=== PATIENT | female | born 1995 | race Caucasian/White ===

== ENCOUNTER 2024-09-20 20:46 | Emergency (ER) | payer BC, OTHER ==
--- OUTSIDE RECORDS SUMMARY | 2024-09-20 20:48 | XMS REPORT | Continuity of Care Document ---
Author Name Unknown Address [address] [facility] [address] [place] [address] [facility] thconnect Address [address] [facility] [address] [place] [address] Care Team Providers Care Criminal Justice Lawyer Name Role Phone Pcp, Patient Does Not Have A Primary Care Physic sd [email or web address] Attending Clinician Rafael mann Doctor Unassigned, [place] Attending Clinician U navailable Lab, Adc Fam Pob I Attending Clinician Garret Antoine Attending Clinician [phone] GARRET ALEMAN Attending Clinician Unavailable Perry RN, Clari Dumont Attending Clinician Lala orr Pob1, Acute Care Clinic Attending Clinician Unamerissa ailnasrin Unknown, Attending Attending Clinician Yumiko Campos Attending Clinician [phone] [email or web address] Admitting Clinician Rafael mann Payers Payer Name Policy Type Policy Number Effective Date Expirati on Date Source Problems Condition Name Condition Details Condition Category Status Onset Date Resolution Date Last Treatment Date Treating Clinician Comments Source Right leg pain Right leg pain Disease Active 04-15 00:00: 00 [facility] Allergies, Adverse Reactions, Alerts Allergy Name Allergy Type Status Severity Reaction(s) Onset Date Inactive Date Treating Clinician Comments Source Doxycycl ine Monohydr ate Propensi ty to adverse reaction s Active Hives 04-15 00:00: 00 Namrata [facility] DOXYCYCL INE MONOHYDR ATE DRUG INGREDI Active Hives 04-15 00:00: 00 [facility] Social History Social Habit Start Date Stop Date Quantity Comments Source [facility] of Social function 2020-06-29 00:00:00 2020-06-29 00:00:00 [facility] Alcohol intake 2020-03-04 00:00:00 2020-03-04 00:00:00 0 /d [facility] Tobacco use and exposure 2020-03-04 00:00:00 2020-03-04 00:00:00 Smokeless tobacco non-user [facility] Sex Assigned At 1995 00:00:00 1995 00:00:00 [facility] Smoking Status Start Date Stop Date Source Never smoked tobacco [facility] Medications Ordered Medication Name Filled Medication Name Start Date Stop Date Current Medication? Ordering Clinician Indication Dosage Frequency Signature (SIG) Comments Components Source SERTraline 25 mg tablet 01-27 00:00: 00 Yes TAKE ONE (1) TABLET(S) BY MOUTH ONCE A DAY. [facility] diclofenac (VOLTAREN) 75 mg EC tablet 04-18 00:00: 00 Yes 75mg Take 1 tablet by mouth 2 (two) times daily with meals. [facility] VIORELE, 28, 0.15-0.02 mgx21 /0.01 mg x 5 per tablet 02-21 00:00: 00 Yes [facility] Vital Signs Vital Name Observation Time Observation Value Comments S ource Systolic blood pressure 2020-03-04 13:59:00 124 mm[Hg] [facility] Diastolic blood pressure 2020-03-04 13:59:00 81 mm[Hg] [facility] Heart rate 2020-03-04 13:59:00 82 /min [facility] Body temperature 2020-03-04 13:59:00 36.78 Huong [facility] Respiratory rate 2020-03-04 13:59:00 18 /min [facility] Body height 2020-03-04 13:59:00 175.3 cm [facility] Body weight 2020-03-04 13:59:00 90.719 kg [facility] BMI 2020-03-04 13:59:00 29.53 kg/m2 [facility] Oxygen saturation in Arterial blood by Pulse oximetry 2020-03-04 13:59:00 99 /min [facility] Procedures Procedure Date / Time Performed Performing Clinicia n Source CONSENT/REFUSAL FOR DIAGNOSIS AND TREATMENT 2020-03-04 05:01:00 Doctor Unassigned, [place] [facility] Encounters Start Date/Time End Date/Time Encounter Type Admission Type [facility]ending [facility] Care Facility Care Department Encounter ID Source 2023-09-21 00:00:00 2023-09-21 00:00:00 Outpatient [email or web address] [email or web address] [facility] [id number] [facility] 2020-06-08 00:00:00 2020-06-08 00:00:00 Patient Secure Msg Doctor Unassigned, [place] [facility] 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 [id number] [facility] 2020-06-06 13:53:59 2020-06-06 14:13:59 Laboratory Only Lab, [facility] [id number] [facility] 2020-06-06 14:00:00 2020-06-06 14:00:00 Outpatient GARRET WYLIE [facility] [id number] [facility] 2020-03-05 00:00:00 2020-03-05 00:00:00 Telephone Clari Amador [facility] .[id number] [id number] [facility] 2020-03-04 08:40:40 2020-03-04 09:09:07 Urgent Care Pob1, Acute Care Clinic Unknown, Attending Yumiko Crespo [facility] [address] [id number] [facility] 2020-03-04 09:00:00 2020-03-04 09:00:00 Outpatient R [facility] [id number] [facility] 2020-03-04 00:00:00 2020-03-04 00:00:00 Orders Only Doctor Unassigned, [place] [facility] [id number] [facility]
[2024-09-20] MEDS ORDERED: METOCLOPRAMIDE 10 MG/2mL INJ ONE (21:41)
[2024-09-20] MEDS ORDERED: DIPHENHYDRAMINE 50 MG/ML VIAL ONE (21:41)
[2024-09-20] MEDS ORDERED: NA CHLORIDE 0.9% 500 ML ONE (21:42)
[2024-09-20 21:45] LABS: Absolute Basophils 0.1 K/uL (0-0.5); Absolute Eosinophils 0.1 K/uL (0-0.5); Absolute Lymphocytes (CBC) 3.3 K/uL (0.7-4.9); Absolute Monocytes 1.4 K/uL (0.1-1.3); Absolute Neutrophil 6.8 K/uL (1.8-8.0); Basophils % 0.7 % (0-1.3); Eosinophils % 0.6 % (0-4.4); Hematocrit 35.5 % (36.0-45.0); Hemoglobin 11.7 g/dL (12.0-15.0); Lymphocytes % 28.1 % (15.3-44.8); MCH 27.2 pg (27.0-35.0); MCHC 32.8 g/dL (32.0-36.0); MCV 82.8 fL (80-100); MPV 7.7 fL (7.6-11.3); Monocytes % 11.7 % (3.3-12.3); Neutrophils % 58.9 % (41.7-73.7); Platelets 294 thou/uL (152-406); RBC Red Blood Cell Count 4.29 M/uL (3.86-4.86); Red Cell Distribution Width 13.6 % (12.1-15.2)
[2024-09-20 21:49] LABS: Sqamous Epithelial <5 /HPF (None Seen); Urine Bacteria None Seen /HPF (<20); Urine Bilirubin NEGATIVE (Negative); Urine Blood 1+ (Negative); Urine Clarity Clear (Clear); Urine Color Yellow (Yellow); Urine Culture Reflex Order NOT NEEDED; Urine Glucose NEGATIVE (Negative); Urine Ketones 3+ (Negative); Urine Microscopic Reflex YN ORDER UMIC; Urine Mucus Slight /HPF (None Seen); Urine Nitrite NEGATIVE (Negative); Urine Protein TRACE (Negative); Urine Urobilinogen 2+ (Normal); Urine WBC <5 /HPF (<5); Urine pH 6.5 (5.0-7.0)
[2024-09-20 21:59] LABS: Albumin 3.2 g/dL (3.4-5.0); Albumin/Globulin Ratio 0.9 (1.1-1.8); Bilirubin Total 1.3 mg/dL (0.2-1.0); Globulin 3.6 g/dL (2.3-3.5); Protein, Total 6.8 g/dL (6.4-8.2)
--- NOTE | 2024-09-20 22:26 | RAD REPORT ---
EXAM: Right upper quadrant ultrasound. CLINICAL HISTORY: Abdominal pain COMPARISON: 2011 FINDINGS: A gallstone is not seen. Gallbladder wall not thickened. Biliary tree normal caliber IMPRESSION: No significant abnormalities displayed
--- NOTE | 2024-09-20 23:01 | ER ---
Nurse's Notes [facility] Name: Ana Edouard Age: 29 yrs Sex: Female : 1995 Arrival Date: 09/20/2024 Time: 20:46 Bed 25 Private MD: Diagnosis: Abdominal pain, unspecified;Nausea with vomiting, unspecified;Hypokalemia;Dehydration Presentation: 09/20 21:10 Chief complaint: Patient states: C/o epi gastric pain since Friday. Pain is severe. cg Diarrhea x 1 day only. Vomiting for 3 days. Coronavirus screen: Vaccine status: Patient reports receiving the 2nd dose of the covid vaccine. Ebola Screen: Patient negative for fever greater than or equal to 101.5 degrees Fahrenheit, and additional compatible Ebola Virus Disease symptoms. Initial Sepsis Screen: Does the patient meet any 2 criteria? No. Patient's initial sepsis screen is negative. Risk Assessment: Do you want to hurt yourself or someone else? Patient reports no desire to harm self or others. Onset of symptoms was September 17, 2024. 21:10 Method Of Arrival: Ambulatory cg 21:10 Acuity: ROBB 3 cg Triage Assessment: 21:54 General: Appears uncomfortable, well developed, Behavior is calm, Reports. Pain: cg Complains of pain in abdomen Pain currently is 4 out of 10 on a pain scale. Quality of pain is described as burning, pressure. Historical: - Allergies: 21:14 Doxycycline; cg - Home Meds: 21:14 Zoloft 150mg Oral daily for anxiety with depression [Active]; metformin 1,000 mg Oral cg tablet daily [Active]; - Immunization history:: Adult Immunizations up to date. - Infectious Disease History:: Denies. - Social history:: Smoking status: Patient denies any tobacco usage or history of. Screenin:51 [facility] ED Fall Risk Assessment (Adult) History of falling in the last 3 months, fu including since admission No falls in past 3 months (0 pts) Confusion or Disorientation No (0 pts) Intoxicated or Sedated No (0 pts) Impaired Gait No (0 pts) Mobility Assist Device Used No (0 pt) Altered Elimination No (0 pt) Score/Fall Risk Level 0 - 2 = Low Risk Oriented to surroundings, Maintained a safe environment. Abuse screen: Denies threats or abuse. Nutritional screening: No deficits noted. Tuberculosis screening: No symptoms or risk factors identified. Assessment: 22:00 General: Appears uncomfortable, Behavior is calm, cooperative. Pain: Complains of pain fu in abdomen Pain does not radiate. Pain currently is 4 out of 10 on a pain scale. Quality of pain is described as crampy. Neuro: Level of Consciousness is awake, alert, obeys commands, Oriented to person, place, time, situation, Speech is normal. GI: Bowel sounds present X 4 quads. Abd is soft. Derm: Skin is intact. 22:58 Reassessment: Patient and/or family updated on plan of care and expected duration. Pain fu level reassessed. Patient is alert, oriented x 3, equal unlabored respirations, skin warm/dry/pink. Dr. Brush in patient room, talking to patient. Vital Signs: 21:10 BP 131 / 73; Pulse 69; Resp 20; Temp 98; Weight 97.52 kg; Height 5 ft. 9 in. ; Pain cg 4/10; 21:56 BP 125 / 90; Pulse 80; Resp 16; Temp 98.5; cg 22:30 BP 106 / 63; Pulse 68; Resp 16; Pain 4/10; fu 23:00 BP 107 / 72; Pulse 80; Resp 16; fu 21:10 Body Mass Index 31.75 (97.52 kg, 175.26 cm) cg 21:10 Pain Scale: Adult cg 22:30 Pain Scale: Adult fu ED Course: 20:49 Patient arrived in ED. ra3 21:08 Ramiro Brush MD is Attending Physician. ec2 21:14 Triage completed. cg 21:29 CBC with Diff Sent. cg 21:29 CMP Sent. cg 21:29 Lipase Sent. cg 21:29 Inserted saline lock: 22 gauge in right antecubital area, using aseptic technique. fu Blood collected. 21:34 Test, Urine Sent. cg 21:34 Urinalysis w/ reflexes Sent. cg 22:10 US Abdomen Limited In Process Unspecified. EDMS 22:47 Wily Treviño, RN is Primary Nurse. fu 22:51 Patient has correct armband on for positive identification. Bed in low position. Side fu rails up X2. personal lines sales rep on. Pulse ox on. NIBP on. 23:22 No provider procedures requiring assistance completed. fu 23:22 IV discontinued, bleeding controlled, Pressure dressing applied. fu Administered Medications: 21:31 CANCELLED (Physician Discretion): ondansetron 4 mg IVP once; over 2 minutes ec2 21:52 Drug: NS 0.9% IV 500 ml IV at bolus once; to be given as a bolus over 30 minutes Route: cg IV; Rate: bolus; Site: right antecubital; 22:59 Follow up: Response: No adverse reaction; IV Intake: 500ml fu 21:52 Drug: metoCLOPramide IVP 10 mg IVP once; over 1 to 2 minutes Route: IVP; Site: right cg antecubital; 22:59 Follow up: Response: No adverse reaction fu 21:52 Drug: diphenhydrAMINE IVP 50 mg IVP once Route: IVP; Site: right antecubital; cg 22:59 Follow up: Response: No adverse reaction fu Medication: 22:59 VIS not applicable for this client. fu Intake: 22:59 IV: 500ml; Total: 500ml. fu Outcome: 23:01 Discharge ordered by . ec2 23:23 Discharged to home ambulatory, fu 23:23 Condition: good 23:23 Discharge instructions given to patient, family, Instructed on discharge instructions, follow up and referral plans. Demonstrated understanding of instructions, follow-up care, medications, Prescriptions given X 1, 23:23 Patient left the ED. fu Signatures: Dispatcher [employer] Malena Escudero, RN TWIN Wily Treviño RN RN Ramiro Brush MD MD ec2 Angelica Sanchez ra3
--- NOTE | 2024-09-20 23:01 | EDPHYS ---
Physician Documentation [facility] Name: Ana Edouard Age: 29 yrs Sex: Female : 1995 Arrival Date: 09/20/2024 Time: 20:46 Bed 25 Private MD: ED Physician Ramiro Brush HPI: 09/20 21:32 This 29 yrs old Female presents to ER via Ambulatory with complaints of ec2 Abdominal Pain, Vomiting. 21:32 Patient arrives today for evaluation of abdominal pain. Reports she been having ec2 abdominal pain ongoing for 2 days. Reports associated nausea and vomiting. Patient reports that she has been to the ED 3 times in the past [address] imaging, negative urine studies. Reports otherwise no previous abdominal surgeries. Reports history of IBS. Has taken Zofran as well as droperidol.. Historical: - Allergies: 21:14 Doxycycline; cg - Home Meds: 21:14 Zoloft 150mg Oral daily for anxiety with depression [Active]; metformin 1,000 mg Oral cg tablet daily [Active]; - Immunization history:: Adult Immunizations up to date. - Infectious Disease History:: Denies. - Social history:: Smoking status: Patient denies any tobacco usage or history of. ROS: 21:32 Constitutional: as per hpi ec2 Exam: 21:32 Constitutional: GEN: NAD Head: atraumatic Eyes: EOMI Ears: External ears are ec2 normal. CV: regular rate LUNGS: no respiratory distress ABD: non-distended SKIN: no evidence of rashes MSK: no evidence of trauma Vital Signs: 21:10 BP 131 / 73; Pulse 69; Resp 20; Temp 98; Weight 97.52 kg; Height 5 ft. 9 in. ; Pain cg 4/10; 21:56 BP 125 / 90; Pulse 80; Resp 16; Temp 98.5; cg 22:30 BP 106 / 63; Pulse 68; Resp 16; Pain 4/10; fu 23:00 BP 107 / 72; Pulse 80; Resp 16; fu 21:10 Body Mass Index 31.75 (97.52 kg, 175.26 cm) cg 21:10 Pain Scale: Adult cg 22:30 Pain Scale: Adult fu MDM: 21:10 Medical Screening Exam initiated ec2 21:32 Data reviewed: vital signs. ED course: Patient arrives today for evaluation of ec2 abdominal pain. Examination remarkable for well-appearing nontoxic dividual's otherwise in no acute distress with a reassuring examination. Will obtain labs, urine studies, ultrasound. Differential diagnosis includes gastritis, gastroenteritis, cholecystitis. Axonal peripheral indicates that patient was diagnosed with viral gastroenteritis . 22:25 ED course: CBC is reassuring, no significant leukocytosis, slight hypokalemia with a ec2 potassium of 3.0. Urine is noninfectious appearing. testing negative. Ultrasound shows no evidence of cholecystitis. On reassessment patient with improvement in symptoms. Will discharge home. Return precautions given. 09/20 21:10 Order name: CBC with Diff; Complete Time: 22:24 ec2 09/20 21:10 Order name: CMP; Complete Time: 22:24 ec2 09/20 21:10 Order name: Lipase; Complete Time: 22:24 ec2 09/20 21:10 Order name: Test, Urine; Complete Time: 22:24 ec2 09/20 21:10 Order name: Urinalysis w/ reflexes; Complete Time: 22:24 ec2 09/20 21:32 Order name: US Abdomen Limited; Complete Time: 22:52 ec2 09/20 21:10 Order name: IV Saline Lock; Complete Time: 21:29 ec2 09/20 21:10 Order name: Labs collected and sent; Complete Time: 21:29 ec2 Administered Medications: 21:31 CANCELLED (Physician Discretion): ondansetron 4 mg IVP once; over 2 minutes ec2 21:52 Drug: NS 0.9% IV 500 ml IV at bolus once; to be given as a bolus over 30 minutes Route: cg IV; Rate: bolus; Site: right antecubital; 22:59 Follow up: Response: No adverse reaction; IV Intake: 500ml fu 21:52 Drug: metoCLOPramide IVP 10 mg IVP once; over 1 to 2 minutes Route: IVP; Site: right cg antecubital; 22:59 Follow up: Response: No adverse reaction fu 21:52 Drug: diphenhydrAMINE IVP 50 mg IVP once Route: IVP; Site: right antecubital; 22:59 Follow up: Response: No adverse reaction fu Disposition Summary: 09/20/24 23:01 Discharge Ordered Condition: Stable ec2 Diagnosis - Abdominal pain, unspecified ec2 - Nausea with vomiting, unspecified ec2 - Hypokalemia ec2 - Dehydration ec2 Followup: ec2 - With: Private Physician - When: - Reason: Recheck today's complaints Discharge Instructions: - Discharge Summary Sheet ec2 - Abdominal Pain, Adult ec2 - Nausea and Vomiting, Adult ec2 Forms: - Medication Reconciliation Form ec2 - Antibiotic Education ec2 - Prescription Opioid Use ec2 - Patient Portal Instructions ec2 - Leadership Thank You Letter ec2 Prescriptions: - Reglan 10 mg Oral tablet - take 1 tablet ORAL route every 6 hours . take 30 minutes before meals and at ec2 bedtime; 30 tablet; Refills: 0, Product Selection Permitted Signatures: Dispatcher [employer] Malena Escudero RN RN Ramiro Brush MD MD 2 Wily Treviño RN Corrections: (The following items were deleted from the chart) 21:31 21:10 Ondansetron IVP 4 mg IVP once; over 2 minutes ordered. ec2 ec2 23:02 22:25 ED course: CBC is reassuring, no significant leukocytosis, slight hypokalemia ec2 with a potassium of 3.0. Urine is noninfectious appearing. testing negative. Ultrasound shows no evidence of cholecystitis. . ec2
[2024-09-21 00:30] VITALS: TEMP 98.5
[2024-09-21 00:37] VITALS: BP 107/72
== END 2024-09-20 23:23 | disposition home or self-care (01) ==
LOC: ER 20:46
DX: R10.9 Unspecified abdominal pain (principal); R11.2 Nausea with vomiting, unspecified; E87.6 Hypokalemia; E86.0 Dehydration
CPT/HCPCS: 85025; 81001; 36415; 81025; 83690; 80053; 76705; J2765; J1200; J7040; 96374; 96375; 99285

== ENCOUNTER 2024-09-21 03:48 | Emergency (ER) | payer BC ==
--- OUTSIDE RECORDS SUMMARY | 2024-09-21 03:51 | XMS REPORT | Continuity of Care Document ---
Author Name Unknown Address [address] [facility] [address] [place] [address] [facility] thconnect Address [address] [facility] [address] [place] [address] Care Team Providers Care Marketing Lead Name Role Phone Pcp, Patient Does Not Have A Primary Care Physic sd [email or web address] Attending Clinician Rafael mann Doctor Unassigned, [place] Attending Clinician U navailable Lab, Adc Fam Pob I Attending Clinician Myrna Antoine Attending Clinician [phone] MYRNA ALEMAN Attending Clinician Unavailable Perry RN, Clari P Attending Clinician Lala orr Pob1, Acute Care Clinic Attending Clinician Love ailable Unknown, Attending Attending Clinician Yumiko Campos Attending Clinician [phone] [email or web address] Admitting Clinician Rafael mann Payers Payer Name Policy Type Policy Number Effective Date Expirati on Date Source Problems Condition Name Condition Details Condition Category Status Onset Date Resolution Date Last Treatment Date Treating Clinician Comments Source Right leg pain Right leg pain Disease Active 04-15 00:00: 00 [facility] Allergies, Adverse Reactions, Alerts Allergy Name Allergy Type Status Severity Reaction(s) Onset Date Inactive Date Treating Clinician Comments Source Doxycycl ine Monohydr ate Propensi ty to adverse reaction s Active Hives 04-15 00:00: 00 [place] [facility] DOXYCYCL INE MONOHYDR ATE DRUG INGREDI Active Hives 04-15 00:00: 00 [facility] Social History Social Habit Start Date Stop Date Quantity Comments Source [facility] Social function 2020-06-29 00:00:00 2020-06-29 00:00:00 [facility] Alcohol intake 2020-03-04 00:00:00 2020-03-04 00:00:00 0 /d [facility] Tobacco use and exposure 2020-03-04 00:00:00 2020-03-04 00:00:00 Smokeless tobacco non-user [facility] Sex Assigned At 1995 00:00:00 1995 00:00:00 [facility] Smoking Status Start Date Stop Date Source Never smoked tobacco [facility] Medications Ordered Medication Name Filled Medication Name Start Date Stop Date Current Medication? Ordering Clinician Indication Dosage Frequency Signature (SIG) Comments Components Source SERTraline 25 mg tablet 01-27 00:00: 00 Yes TAKE ONE (1) TABLET(S) BY MOUTH ONCE A DAY. [facility] diclofenac (VOLTAREN) 75 mg EC tablet 04-18 00:00: 00 Yes 75mg Take 1 tablet by mouth 2 (two) times daily with meals. [facility] VIORELE, 28, 0.15-0.02 mgx21 /0.01 mg x 5 per tablet 02-21 00:00: 00 Yes [facility] Vital Signs Vital Name Observation Time Observation Value Comments S ource Systolic blood pressure 2020-03-04 13:59:00 124 mm[Hg] [facility] Diastolic blood pressure 2020-03-04 13:59:00 81 mm[Hg] [facility] Heart rate 2020-03-04 13:59:00 82 /min [facility] Body temperature 2020-03-04 13:59:00 36.78 Huong [facility] Respiratory rate 2020-03-04 13:59:00 18 /min [facility] Body height 2020-03-04 13:59:00 175.3 cm [facility] Body weight 2020-03-04 13:59:00 90.719 kg [facility] BMI 2020-03-04 13:59:00 29.53 kg/m2 [facility] Oxygen saturation in Arterial blood by Pulse oximetry 2020-03-04 13:59:00 99 /min [place] [facility] Procedures Procedure Date / Time Performed Performing Clinicia n Source CONSENT/REFUSAL FOR DIAGNOSIS AND TREATMENT 2020-03-04 05:01:00 Doctor Unassigned, [place] [facility] Encounters Start Date/Time End Date/Time Encounter Type Admission Type Attending Clinicians Care Facility Care Department Encounter ID Source 2023-09-21 00:00:00 2023-09-21 00:00:00 Outpatient [email or web address] robertoa_S [facility] [id number] [facility] 2020-06-08 00:00:00 2020-06-08 00:00:00 Patient Secure Msg Doctor Unassigned, [place] [facility] 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 [facility]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 [facility] [id number] [id number] [facility] 2020-06-06 13:53:59 2020-06-06 14:13:59 Laboratory Only Lab, Adc [facility] [id number] [id number] [facility] 2020-06-06 14:00:00 2020-06-06 14:00:00 Outpatient MYRNA WYLIE [facility] [id number] [facility] 2020-03-05 00:00:00 2020-03-05 00:00:00 Telephone Clari Amador [facility] .840.114 [id number] [id number] [facility] 2020-03-04 08:40:40 2020-03-04 09:09:07 Urgent Care Pob1, Acute Care Clinic Unknown, Attending Yumiko Crespo [facility] [address] [id number] [id number] [facility] 2020-03-04 09:00:00 2020-03-04 09:00:00 Outpatient R [facility] [id number] [facility] 2020-03-04 00:00:00 2020-03-04 00:00:00 Orders Only Doctor Unassigned, [place] [facility] 1.840.114 350.1.13.10 [id number] [facility]
[2024-09-21] MEDS ORDERED: KCL 20 MEQ/100 mL IVPB 100 ML IV ONE (04:17)
[2024-09-21] MEDS ORDERED: FAMOTIDINE 20 MG/2 ML VIAL IV ONE (04:17)
[2024-09-21] MEDS ORDERED: droPERidol 5 MG/2 ML VIAL ONE (04:17)
[2024-09-21] MEDS ORDERED: DIPHENHYDRAMINE 50 MG/ML VIAL ONE (04:17)
[2024-09-21] MEDS ORDERED: NA CHLORIDE 0.9% 1,000 ML ONE (04:18)
[2024-09-21 04:37] LABS: Absolute Basophils 0.1 K/uL (0-0.5); Absolute Monocytes 0.9 K/uL (0.1-1.3); Absolute Neutrophil 9.3 K/uL (1.8-8.0); Basophils % 0.5 % (0-1.3); Eosinophils % 0.2 % (0-4.4); Hematocrit 36.9 % (36.0-45.0); Hemoglobin 12.2 g/dL (12.0-15.0); Lymphocytes % 16.6 % (15.3-44.8); MCH 27.3 pg (27.0-35.0); MCHC 33.1 g/dL (32.0-36.0); MCV 82.5 fL (80-100); Monocytes % 7.5 % (3.3-12.3); Neutrophils % 75.2 % (41.7-73.7); Platelets 312 thou/uL (152-406); RBC Red Blood Cell Count 4.47 M/uL (3.86-4.86); Red Cell Distribution Width 13.7 % (12.1-15.2)
[2024-09-21 04:45] LABS: Albumin 3.4 g/dL (3.4-5.0); Albumin/Globulin Ratio 0.9 (1.1-1.8); Bilirubin Total 1.4 mg/dL (0.2-1.0); Globulin 3.7 g/dL (2.3-3.5); Protein, Total 7.1 g/dL (6.4-8.2)
[2024-09-21] MEDS ORDERED: MAGNES/ALUMIN/SIMET 30ML UCUP ONE (05:49)
[2024-09-21] MEDS ORDERED: LIDOCAINE VISCOUS 2% 10ML ORAL SOLN ONE (05:50)
--- NOTE | 2024-09-21 05:58 | EDPHYS ---
Physician Documentation [facility] Name: Ana Edouard Age: 29 yrs Sex: Female : 1995 Arrival Date: 09/21/2024 Time: 03:48 Bed 7 Private MD: ED Physician Ramiro Brush HPI: 09/21 04:03 This 29 yrs old Female presents to ER via EMS with complaints of ec2 Nausea/Vomiting, Abdominal Pain. 04:03 Patient arrives today for nausea and vomiting and abdominal pain. Patient was seen here ec2 earlier by me, had reassuring lab work with slight hypokalemia noted along with an ultrasound that was negative for acute pathology. Patient reports upper abdominal pain. EMS reports multiple bouts of dry heaving however no emesis.. JOB HONER: 04:45 Not al5 Historical: - Allergies: 04:03 Doxycycline; al5 - PMHx: 04:03 IBS; depression; al5 - PSHx: 04:03 None; al5 - Immunization history:: Adult Immunizations up to date. - Infectious Disease History:: Denies. - Social history:: Smoking status: Patient denies any tobacco usage or history of. ROS: 04:03 Constitutional: as per hpi ec2 Exam: 04:03 Constitutional: GEN: NAD Head: atraumatic Eyes: EOMI Ears: External ears are ec2 normal. CV: regular rate LUNGS: no respiratory distress ABD: Soft, not guarding, generally tender SKIN: no evidence of rashes MSK: no evidence of trauma Vital Signs: 04:04 BP 163 / 94; Pulse 74; Resp 19; Temp 99; Pulse Ox 100% ; Pain 10/10; al5 04:15 BP 153 / 81; Pulse 77; Resp 18; Pulse Ox 100% on R/A; al5 04:25 BP 153 / 81; Pulse 89; Pulse Ox 100% ; ec2 04:30 BP 167 / 96; Pulse 80; Resp 17; Pulse Ox 98% on R/A; al5 04:45 BP 159 / 92; Pulse 74; Resp 17; Pulse Ox 97% on R/A; al5 05:00 BP 160 / 88; Pulse 67; Resp 18; Pulse Ox 97% on R/A; al5 05:15 BP 145 / 93; Pulse 89; Resp 16; Pulse Ox 97% on R/A; al5 05:45 BP 160 / 95; Pulse 84; Resp 17; Pulse Ox 99% on R/A; al5 05:48 Weight 97.52 kg; vc1 06:00 BP 145 / 94; Pulse 75; Resp 17; Pulse Ox 97% on R/A; al5 04:04 Pain Scale: Adult al5 MDM: 03:55 Medical Screening Exam initiated ec2 04:03 Data reviewed: vital signs. ED course: Patient arrives today for evaluation of upper ec2 abdominal pain. Examination remarkable for nontoxic dividual. Will obtain lab work, CT imaging, treat the patient's symptoms.. 05:35 ED course: CT imaging shows esophagitis. . ec2 09/21 03:56 Order name: CBC with Diff; Complete Time: 04:46 ec2 09/21 03:56 Order name: CMP; Complete Time: 04:46 ec2 09/21 03:56 Order name: Lipase; Complete Time: 04:46 ec2 09/21 03:56 Order name: CT Abd/Pelvis - IV Contrast Only ec2 09/21 03:56 Order name: IV Saline Lock; Complete Time: 04:01 ec2 09/21 03:56 Order name: Labs collected and sent; Complete Time: 04:01 ec2 Administered Medications: 04:31 Drug: TORadol - Ketorolac IVP 15 mg IVP once Route: IVP; Site: right antecubital; al5 05:06 Follow up: Response: No adverse reaction; Pain is decreased al5 04:31 Drug: Droperidol IVP 2.5 mg IVP once Route: IVP; Site: right antecubital; al5 05:06 Follow up: Response: No adverse reaction; Pain is decreased al5 04:31 Drug: diphenhydrAMINE IVP 50 mg IVP once Route: IVP; Site: right antecubital; al5 05:06 Follow up: Response: No adverse reaction; Pain is decreased al5 04:31 Drug: Famotidine IVP 20 mg IVP once; dilute with 10 mL 0.9% NaCl; give over 2 minutes al5 Route: IVP; Site: right antecubital; 05:06 Follow up: Response: No adverse reaction; Pain is decreased al5 04:39 Drug: NS 0.9% IV 1000 ml IV at 1 bolus Per protocol; to be given as a bolus over 60 al5 minutes Route: IV; Rate: 1 bolus; Site: right antecubital; 06:31 Follow up: Response: No adverse reaction; IV Status: Completed infusion; IV Intake: al5 1000ml 04:39 Drug: Potassium Chloride IV 20 mEq IV at calculated rate once; administer over 1-2 al5 hours Route: IV; Rate: calculated rate; Site: right antecubital; 06:30 Follow up: Response: No adverse reaction; IV Status: Order to discontinue infusion; IV al5 Intake: 65ml 05:56 Drug: GI Cocktail with - (Maalox PO 30 ml, Lidocaine Mucous Membrane 2 % 20 dd2 ml, Phenobarbital-Belladonna PO 10 ml) PO once Route: PO; 06:30 Follow up: Response: No adverse reaction; Pain is decreased al5 Disposition Summary: 09/21/24 05:57 Discharge Ordered Notes: Location: Home ec2 Condition: Stable ec2 Diagnosis - Esophagitis, unspecified ec2 Followup: ec2 - With: Bg Rodriguez MD - When: - Reason: Recheck today's complaints Discharge Instructions: - Discharge Summary Sheet ec2 - Esophagitis ec2 Forms: - Medication Reconciliation Form ec2 - Antibiotic Education ec2 - Prescription Opioid Use ec2 - Patient Portal Instructions ec2 - Leadership Thank You Letter ec2 Prescriptions: - Protonix 40 mg Oral Tablet - take 1 tablet ORAL route once daily; 30 tablet; Refills: 0, Product Selection ec2 Permitted Signatures: Dispatcher [employer] Ramiro Hayden MD MD ec2 Angelica Callahan RN RN al5 AUDELIA MANCINI RN RN dd2 Corrections: (The following items were deleted from the chart) 03:56 03:56 Abdomen Pelvis W Con+CT.RAD.BRZ ordered. CEDRIC STEELE
--- NOTE | 2024-09-21 05:58 | ER ---
Nurse's Notes [facility] Name: Ana Edouard Age: 29 yrs Sex: Female : 1995 Arrival Date: 09/21/2024 Time: 03:48 Bed 7 Private MD: Diagnosis: Esophagitis, unspecified Presentation: 09/21 04:02 Chief complaint: Patient states: c/o abdominal pain, nausea, vomiting for 3 days. al5 Coronavirus screen: At this time, the client does not indicate any symptoms associated with coronavirus-19. Ebola Screen: No symptoms or risks identified at this time. Initial Sepsis Screen:. Risk Assessment: Do you want to hurt yourself or someone else? Patient reports no desire to harm self or others. Onset of symptoms was September 18, 2024. 04:02 Method Of Arrival: EMS: [facility] al5 04:02 Acuity: ROBB 3 al5 04:05 Care prior to arrival: IV initiated. 20 GA, in the right antecubital area. al5 04:05 Initial Sepsis Screen: Does the patient meet any 2 criteria? No. Patient's initial al5 sepsis screen is negative. Does the patient have a suspected source of infection? No. Patient's initial sepsis screen is negative. Triage Assessment: 04:04 General: Appears in no apparent distress. uncomfortable, Behavior is calm, cooperative, al5 restless. Pain: Complains of pain in abdomen. EENT: No signs and/or symptoms were reported regarding the EENT system. Neuro: Level of Consciousness is awake, alert, obeys commands, Oriented to person, place, time, situation. Cardiovascular: Capillary refill < 3 seconds Patient's skin is warm and dry. Respiratory: Airway is patent Respiratory effort is even, unlabored, Respiratory pattern is regular, symmetrical. GI: Abdomen is round non-distended, Abd is soft Abdomen is tender to palpation in epigastric area, right upper quadrant and left upper quadrant Reports upper abdominal pain, diarrhea, nausea, vomiting. : No signs and/or symptoms were reported regarding the genitourinary system. Derm: Skin is intact, Skin is pink, warm \T\ dry. normal. Musculoskeletal: No signs and/or symptoms reported regarding the musculoskeletal system. VAUDEVILLE ACTOR: 04:45 Not al5 Historical: - Allergies: 04:03 Doxycycline; al5 - PMHx: 04:03 IBS; depression; al5 - PSHx: 04:03 None; al5 - Immunization history:: Adult Immunizations up to date. - Infectious Disease History:: Denies. - Social history:: Smoking status: Patient denies any tobacco usage or history of. Screenin:06 [facility] ED Fall Risk Assessment (Adult) History of falling in the last 3 months, al5 including since admission No falls in past 3 months (0 pts) Confusion or Disorientation No (0 pts) Intoxicated or Sedated No (0 pts) Impaired Gait No (0 pts) Mobility Assist Device Used No (0 pt) Altered Elimination No (0 pt) Score/Fall Risk Level 0 - 2 = Low Risk Oriented to surroundings, Maintained a safe environment, Hourly rounding (assess needs \T\ fall precautionary measures) done. Abuse screen: Denies threats or abuse. Denies injuries from another. Nutritional screening: No deficits noted. Tuberculosis screening: No symptoms or risk factors identified. Assessment: 04:06 Reassessment: see triage assessment. GI: Reports upper abdominal pain, diarrhea, al5 nausea, vomiting. 05:08 Reassessment: Patient appears in no apparent distress at this time. Patient and/or al5 family updated on plan of care and expected duration. Pain level reassessed. Patient is alert, oriented x 3, equal unlabored respirations, skin warm/dry/pink. pain has subsided to tolerable level, patient resting comfortably at this time. patient parents at bedside and has been educated on plan of care. 06:29 Reassessment: Patient appears in no apparent distress at this time. No changes from al5 previously documented assessment. Patient and/or family updated on plan of care and expected duration. Pain level reassessed. Patient is alert, oriented x 3, equal unlabored respirations, skin warm/dry/pink. Vital Signs: 04:04 BP 163 / 94; Pulse 74; Resp 19; Temp 99; Pulse Ox 100% ; Pain 10/10; al5 04:15 BP 153 / 81; Pulse 77; Resp 18; Pulse Ox 100% on R/A; al5 04:25 BP 153 / 81; Pulse 89; Pulse Ox 100% ; ec2 04:30 BP 167 / 96; Pulse 80; Resp 17; Pulse Ox 98% on R/A; al5 04:45 BP 159 / 92; Pulse 74; Resp 17; Pulse Ox 97% on R/A; al5 05:00 BP 160 / 88; Pulse 67; Resp 18; Pulse Ox 97% on R/A; al5 05:15 BP 145 / 93; Pulse 89; Resp 16; Pulse Ox 97% on R/A; al5 05:45 BP 160 / 95; Pulse 84; Resp 17; Pulse Ox 99% on R/A; al5 05:48 Weight 97.52 kg; vc1 06:00 BP 145 / 94; Pulse 75; Resp 17; Pulse Ox 97% on R/A; al5 04:04 Pain Scale: Adult al5 ED Course: 03:50 Patient arrived in ED. [email or web address] 03:55 Ramiro Brush MD is Attending Physician. ec2 04:01 Angelica Callahan, TWIN is Primary Nurse. al5 04:03 Triage completed. al5 04:05 Arm band placed on right wrist. Patient placed in the treatment room, on a stretcher. al5 04:06 Patient has correct armband on for positive identification. Bed in low position. Call al5 light in reach. Side rails up X2. Provided Education on: plan of care. 04:06 No provider procedures requiring assistance completed. Maintain EMS IV. Dressing al5 intact. Good blood return noted. Site clean \T\ dry. Gauge \T\ site: 20G RAC. 04:41 CT Abd/Pelvis - IV Contrast Only In Process Unspecified. EDMS 05:57 Bg Rodriguez MD is Referral Physician. ec2 06:29 IV discontinued, intact, bleeding controlled, No redness/swelling at site. Pressure al5 dressing applied. Administered Medications: 04:31 Drug: TORadol - Ketorolac IVP 15 mg IVP once Route: IVP; Site: right antecubital; al5 05:06 Follow up: Response: No adverse reaction; Pain is decreased al5 04:31 Drug: Droperidol IVP 2.5 mg IVP once Route: IVP; Site: right antecubital; al5 05:06 Follow up: Response: No adverse reaction; Pain is decreased al5 04:31 Drug: diphenhydrAMINE IVP 50 mg IVP once Route: IVP; Site: right antecubital; al5 05:06 Follow up: Response: No adverse reaction; Pain is decreased al5 04:31 Drug: Famotidine IVP 20 mg IVP once; dilute with 10 mL 0.9% NaCl; give over 2 minutes al5 Route: IVP; Site: right antecubital; 05:06 Follow up: Response: No adverse reaction; Pain is decreased al5 04:39 Drug: NS 0.9% IV 1000 ml IV at 1 bolus Per protocol; to be given as a bolus over 60 al5 minutes Route: IV; Rate: 1 bolus; Site: right antecubital; 06:31 Follow up: Response: No adverse reaction; IV Status: Completed infusion; IV Intake: al5 1000ml 04:39 Drug: Potassium Chloride IV 20 mEq IV at calculated rate once; administer over 1-2 al5 hours Route: IV; Rate: calculated rate; Site: right antecubital; 06:30 Follow up: Response: No adverse reaction; IV Status: Order to discontinue infusion; IV al5 Intake: 65ml 05:56 Drug: GI Cocktail with - (Maalox PO 30 ml, Lidocaine Mucous Membrane 2 % 20 dd2 ml, Phenobarbital-Belladonna PO 10 ml) PO once Route: PO; 06:30 Follow up: Response: No adverse reaction; Pain is decreased al5 Medication: 04:06 VIS not applicable for this client. al5 Intake: 06:30 IV: 65ml; Total: 65ml. al5 06:31 IV: 1000ml; Total: 1065ml. al5 Outcome: 05:57 Discharge ordered by . ec2 06:30 Discharged to home ambulatory, with family, al5 06:30 Condition: good 06:30 Discharge instructions given to patient, family, Instructed on discharge instructions, follow up and referral plans. medication usage, Demonstrated understanding of instructions, follow-up care, medications, Prescriptions given X 1, 06:31 Patient left the ED. al5 Signatures: Dispatcher [employer] EDVal Alvarado Vanessa RN RN vc1 Ramiro Brush MD MD ec2 Angelica Callahan RN RN al5 AUDELIA MANCINI RN RN dd2 Corrections: (The following items were deleted from the chart) 04:07 04:04 General: Appears in no apparent distress. uncomfortable, Behavior is calm, al5 cooperative, al5
[2024-09-21 06:36] VITALS: TEMP 99
[2024-09-21 06:46] VITALS: BP 145/94; O2SAT 97
--- NOTE | 2024-09-21 07:07 | RAD REPORT ---
EXAM: CT Abdomen and Pelvis With Intravenous Contrast CLINICAL HISTORY: The patient is 29 years old and is Female; Abdominal pain. TECHNIQUE: Axial computed tomography images of the abdomen and pelvis with intravenous contrast. Sagittal and coronal reformatted images were created and reviewed. This CT exam was performed using one or more of the following dose reduction techniques: automated exposure control, adjustmen t of the mA and/or kV according to patient size, and/or use of iterative reconstruction technique. COMPARISON: No relevant prior studies available. FINDINGS: Lung bases: Unremarkable. No mass. No consolidation. Mediastinum: Thickened distal esophageal murdock suggesting esophagitis. ABDOMEN: Liver: Unremarkable. No mass. Gallbladder and bile ducts: Unremarkable. No calcified stones. No ductal dilation. Pancreas: No findings to suggest acute pancreatitis. No mass visualized. No ductal dilation. Spleen: Unremarkable. No splenomegaly. Adrenals: Unremarkable. No mass. Kidneys and ureters: Unremarkable. No solid mass. No hydronephrosis. Stomach and bowel: Mild proximal gastric wall thickening versus artifact of incomplete distention . Small amount of fluid in the lumen of the stomach. No bowel dilatation or obstruction. No bowel wall thickening. PELVIS: Appendix: The visualized appendix is normal. No pericecal inflammation to suggest acute appendici tis. Bladder: Unremarkable. No mass. Reproductive: Unremarkable as visualized. ABDOMEN and PELVIS: Intraperitoneal space: Unremarkable. No free air. No significant fluid collection. Bones/joints: No acute fracture. No dislocation. Soft tissues: Unremarkable. Vasculature: Unremarkable. No abdominal aortic aneurysm. Lymph nodes: No pathologically enlarged lymph nodes. IMPRESSION: 1. Thickened distal esophageal murdock suggesting esophagitis. 2. Mild proximal gastric wall thickening versus artifact of incomplete distention. Electronically signed by: Summer Joseph MD 09/21/2024 05:31 AM CDT ND Due to temporary technical issues with the PACS/Agill[employer] reporting system, reports are being willem d by the in-house radiologist without review as a courtesy to ensure prompt reporting the interpreting radiologist is fully responsible for the content of the report. Transcribed Date/Time: 09/21/2024 7:07 AM
== END 2024-09-21 06:31 | disposition home or self-care (01) ==
LOC: ER 03:48
DX: K20.90 Esophagitis, unspecified without bleeding (principal)
CPT/HCPCS: 85025; 36415; 83690; 80053; 74177; Q9967; J3480; J1200; J1790; J7030; 96365; 96366; 96375; 99284